=== PATIENT | female | born 1980 | race Caucasian/White ===

== ENCOUNTER 2018-08-08 06:06 | Inpatient (IN) | payer OTHER ==
[~2018-08-08 06:06] MED LIST: Buffered Lidocaine 0.9% SYRIN* 5 ML/SYR SYRINGE INTRADERM ONE; Famotidine IV* 10 MG/ML 2 ML (20 mg) IV ONE; Sodium Citrate/Citric Acid* 15 ML UDC PO ONE
[2018-08-08] MEDS ORDERED: ceFOXitin 2 GM IVPREMIX* 2 GM/50 ML BAG IVPB ONE (06:15)
[2018-08-08] MEDS ORDERED: Famotidine IV* 10 MG/ML 2 ML (20 mg) ONE (07:40)
[2018-08-08] MEDS ORDERED: Sodium Citrate/Citric Acid* 15 ML UDC ONE (07:40)
[2018-08-08] MEDS ORDERED: Dexamethasone IV* 4 MG/ML 1 ML (4 MG) ONE (07:51)
[2018-08-08] MEDS ORDERED: Ondansetron INJ* 2 MG/ML VIAL ONE (07:51)
[2018-08-08] MEDS ORDERED: Morphine VIAL* 10 MG/ML 1 ML VIAL ONE ×2 (07:51)
[2018-08-08] MEDS ORDERED: OXYTOCIN* 10 UNITS/ML 1 ML VIAL ONE (07:51)
[2018-08-08] MEDS ORDERED: Morphine PF AMP (0.5MG/ML)* 5 MG/10 ML AMP ONE (07:52)
[2018-08-08] MEDS ORDERED: Lidocaine 0.5%* 50 ML SDV ONE (07:53)
[2018-08-08] MEDS ORDERED: Bupivacaine-MPF SPINAL* 7.5 MG/ML - 2ML AMP ONE (07:53)
[2018-08-08] MEDS ORDERED: Phenylephrine IV* 40 MCG/ML 10 ML SYRINGE ONE (07:53)
[2018-08-08] MEDS ORDERED: oxyCODONE/Acetamin 5/325 MG* TAB PO PRN (08:50)
[2018-08-08] MEDS ORDERED: fentaNYL* 50 MCG/ML 2 ML VIAL (100 MCG VIAL) IV PRN (08:50)
[2018-08-08] MEDS ORDERED: Nalbuphine* 10 MG/ML 1 ML VIAL IV PRN (08:50)
[2018-08-08] MEDS ORDERED: Naloxone* 0.4 MG/ML 1 ML VIAL IV PRN ×2 (08:50)
[2018-08-08] MEDS ORDERED: DiMENhydriNATE IV* 50 MG/ML VIAL IV PUSH PRN (08:50)
[2018-08-08] MEDS ORDERED: Scopolamine 1.5 mg* PATCH TRANSDERM PRN (08:50)
[2018-08-08] MEDS ORDERED: Ondansetron INJ* 2 MG/ML VIAL IV PRN (08:50)
[2018-08-08] MEDS ORDERED: Ketorolac INJ* 30 MG/ML 1 ML VIAL IV PRN (08:50)
[2018-08-08] MEDS ORDERED: Ibuprofen TAB* 600 MG PO SCH (09:00)
[2018-08-08] MEDS ORDERED: Witch Hazel PAD* JAR TOPICAL PRN (09:38)
[2018-08-08] MEDS ORDERED: Acetaminophen TAB* 325 MG PO PRN (09:38)
[2018-08-08] MEDS: Simethicone TAB* 80 MG TAB.CHEW PO SCH ×3 (13:24→21:07)
[2018-08-08] MEDS: Docusate CAP* 100 MG PO SCH ×2 (13:24→21:07)
[2018-08-08] MEDS: Ibuprofen TAB* 600 MG PO SCH ×2 (14:45→17:46)
[2018-08-09] MEDS ORDERED: oxyCODONE/Acetamin 5/325 MG* TAB PO PRN ×2 (00:01)
[2018-08-09] MEDS: Ibuprofen TAB* 600 MG PO SCH (00:13)
[2018-08-09 07:03] LABS: ABS Basophils 0 10^3/ul (0-0.2); ABS Eosinophils 0.1 10^3/ul (0-0.6); ABS Lymphocytes 2.9 10^3/ul (1.0-4.8); ABS Monocytes 1.3 10^3/ul (0-0.8); ABS Neutrophils 12.6 10^3/ul (1.5-7.7); ABS Nucleated RBC 0 10^3/ul; Eosinophil % 0.5 % (0-6); Hematocrit 35 % (35-47); Hemoglobin 11.8 g/dl (12.0-16.0); Lymphocyte % 17.3 % (25-47); Mean Corpuscular HGB Conc 34 g/dl (31-36); Mean Corpuscular Hemoglobin 32 pg (27-31); Mean Corpuscular Volume 94 fL (80-97); Mean Platelet Volume 7.8 fL (7.4-10.4); Nucleated Red Blood Cells % 0.1; Platelet Count 205 10^3/ul (150-450); Red Blood Count 3.73 10^6/ul (4.00-5.40); Red Cell Distribution Width 14 % (10.5-15); White Blood Count 16.9 10^3/ul (3.5-10.8)
[2018-08-09] MEDS: Ibuprofen TAB* 600 MG PO PRN ×3 (07:27→19:50)
[2018-08-09] MEDS: Simethicone TAB* 80 MG TAB.CHEW PO SCH ×4 (07:27→19:51)
[2018-08-09] MEDS: Docusate CAP* 100 MG PO SCH ×3 (07:28→19:51)
[2018-08-09] MEDS ORDERED: Ferrous Gluconate TAB* 324 MG TAB PO SCH (09:00)
--- NOTE | 2018-08-09 21:47 | OP ---
OPERATIVE REPORT: DATE OF OPERATION: 08/08/18 DATE OF : 84 SURGEON: Lani Gaytan MD DRY CELL SEALER: BETSY Rojas ANESTHESIOLOGIST: Dr. Pineda. ANESTHESIA: Spinal. PRE-OP DIAGNOSIS: 37 plus 1 week gestation with history of prior section and gestational hypertension. POST-OP DIAGNOSIS: 37 plus 1 week gestation with history of prior section and gestational hypertension. OPERATIVE PROCEDURE: Repeat low-transverse section with vacuum assist. ESTIMATED BLOOD LOSS: 700 cc. URINE OUTPUT: 300 cc. IV FLUIDS: 1800 cc lactated Ringers. MATERIALS TO LAB: Cord blood. INDICATIONS: This patient is a 38-year-old 2, para 1 with a history of a prior section who desired a repeat section for delivery. The patient's was complicated by significant gestational hypertension over the last month. During this time, the patient's blood pressure would range as high as 160/100 although they generally improved with rest. A 24-hour urine protein was performed at least twice and returned within the normal range , so the patient did not have preeclampsia. Considering the patient's persistently elevated blood pressure, the decision was made to proceed with a delivery at 37 weeks. The patient was extensively counseled and consent was signed. FINDINGS: Normal appearing uterus, fallopian tubes and ovaries. There were some omental adhesions to the anterior abdominal wall, which were taken down. Delivery was productive of a 6 pound 10 ounce female with Apgars of 9 and 9. Time of delivery was 0843. COMPLICATIONS: None. DESCRIPTION OF PROCEDURE: The risks, benefits, and alternatives were described to the patient, and informed consent was obtained. The patient was taken to the operating room with IV running, where spinal anesthesia was induced and found to be adequate. The patient was prepped and draped in normal sterile fashion in the dorsal supine position with a leftward tilt. A Pfannenstiel skin incision was made with a scalpel through the patient's previous incision. This was carried down to the underlying fascia using the scalpel. The fascia was scored in the midline, and the incision was extended using Huang scissors. The fascia was dissected off the underlying rectus muscles using blunt and sharp dissection. The rectus muscles were in the midline using dissection with a Vanessa clamp. The peritoneum was then entered sharply. The bladder was noted to be adhesed high on the anterior wall, so this was dissected down carefully. A bladder blade was placed. A bladder flap was created sharply using Metzenbaum scissors. A low transverse uterine incision was then made with the scalpel. This was carried down to the amniotic membranes. The membranes were then ruptured, productive of clear fluid. The uterine incision was extended using blunt traction. The head was elevated to the level of the incision but with fundal pressure, the head could not deliver through the incision. A Kiwi vacuum cup was then placed on the scalp, and gentle traction was placed during fundal pressure. The head then delivered easily. The vacuum was removed. The shoulders then were also both delivered and the body followed. The infant had excellent tone and cried immediately on delivery. The cord was doubly clamped and cut. The was then handed to the awaiting interventional tech. Cord blood was collected. The placenta was delivered with manual extraction. The uterus was then exteriorized and cleared of all clots and debris. The uterine incision was then reapproximated using 0 Vicryl in a running-locked fashion. A second layer of imbricating 0 Vicryl sutures was then also placed for good hemostasis. The posterior cul-de-sac was irrigated with saline. The uterus was then returned to the abdomen. The incision was reinspected and still noted to be hemostatic. Dense omental adhesions were noted at the top of the anterior wall, so the omentum was doubly clamped at the adhesion site. This was then cut and tied off with 3-0 Vicryl. The peritoneum was closed with 3-0 Vicryl in a running fashion. The fascia was closed with 0 Vicryl in a running fashion. The subcutaneous tissues were copiously irrigated and made hemostatic using the Bovie. The skin was then closed with 4-0 Monocryl in a subcuticular stitch. Mastisol and steristrips were then applied. A sterile bandage was then placed over the incision. The patient tolerated the procedure well. Sponge, lap, and needle counts were correct x2. [id number]/[facility] #: [id number] [facility]
[2018-08-10] MEDS: Ibuprofen TAB* 600 MG PO PRN ×2 (04:53→10:39)
[2018-08-10 08:09] VITALS: BP 134/87
[2018-08-10] MEDS: Docusate CAP* 100 MG PO SCH ×2 (09:16→13:48)
[2018-08-10] MEDS: Simethicone TAB* 80 MG TAB.CHEW PO SCH ×2 (09:16→13:48)
== END 2018-08-10 15:41 | disposition home or self-care (01) | DRG 788 ==
LOC: MCHOB 06:06
PROVIDERS: ADMIT Obstetrics & Gynecology; ATTEND Obstetrics & Gynecology
PROC: 4A1HXCZ Monitoring of Products of Conception, Cardiac Rate, External Approach (ICD-10-PCS; 2018-08-08)
PROC: 10D00Z1 Extraction of Products of Conception, Low, Open Approach (ICD-10-PCS; principal; 2018-08-08 07:45)
DX: O34.211 Maternal care for low transverse scar from previous cesarean delivery (principal); O13.4 Gestational [pregnancy-induced] hypertension without significant proteinuria, complicating childbirth; Z3A.37 37 weeks gestation of pregnancy; Z37.0 Single live birth
CPT/HCPCS: 36415; 85025; A9270-GY; J0694; J1100; J1885; J2270; J2405; J2590